=== PATIENT | female | born 1990 | race Caucasian/White ===

== ENCOUNTER 2016-10-04 00:50 | Emergency (ER) | payer OTHER ==
[~2016-10-04] VITALS: Wt 63.0 kg
[2016-10-04] MEDS ORDERED: SOD CHLORIDE 0.9% 1,000 ML IV ONE (02:30)
--- NOTE | 2016-10-04 03:23 | ERD ---
ER Documentation Chief Complaint Date/Time DATE: 10/04/16 TIME: 03:18 Chief Complaint COUGH AND SOB X 1 DAY HPI This is a 26-year-old female presenting to the emergency department for cough and shortness of breath 1 day. Patient states she was at work earlier today when suddenly she felt weak, dizzy, fatigued, shortness of breath and chest pressure. Patient states she is lifting heavy boxes at work and is unsure if this is the cause of symptoms. No syncopal episodes. Patient now denies any chest pressure or chest pain. No difficulty breathing. Patient continues to be dizzy and short of breath. Last menstrual period 09/22/2016. ROS All systems reviewed and are negative except as per history of present illness. Allergies Allergies: Coded Allergies: No Known Allergy (Unverified , 10/04/16) PMhx/Soc Medical and Surgical Hx: pt denies Medical Hx, pt denies Surgical Hx Hx Alcohol Use: No Hx Substance Use: No Hx Tobacco Use: No Smoking Status: Never smoker Physical Exam Vitals Vital Signs Date Time Temp Pulse Resp B/P Pulse Ox O2 Delivery O2 Flow Rate FiO2 10/04/16 02:43 Nasal Cannula 2 10/04/16 00:57 99.0 86 20 114/56 100 Physical Exam Const: Alert, [id number] Head: Atraumatic Eyes: Normal Conjunctiva ENT: Normal External Ears, Nose and Mouth. Neck: Full range of motion..~ No meningismus. Resp: Clear to auscultation bilaterally. No wheezing, rhonchi or crackles. Cardio: Regular rate and rhythm, no murmurs Abd: Soft, non tender, non distended. Normal bowel sounds Skin: No petechiae or rashes Back: No midline or flank tenderness Ext: No cyanosis, or edema Neur: Awake and alert Psych: Normal Mood and Affect Result Diagram: 10/04/16 0239 10/04/16 0239 Results 24 hrs Laboratory Tests Test 10/04/16 02:39 Anion Gap 16 Basophils # 0.110^3/ul Basophils % 0.6% Blood Urea Nitrogen 10mg/dl Calcium Level 9.5mg/dl Carbon Dioxide Level 25mmol/L Chloride Level 105mmol/L Creatinine 0.57mg/dl Eosinophils # 0.110^3/ul Eosinophils % 0.7% Glucose Level 86mg/dl Hematocrit 38.5% Hemoglobin 13.0g/dl Lymphocytes # 3.310^3/ul Lymphocytes % 34.8% Mean Corpuscular Hemoglobin 29.3pg Mean Corpuscular Hemoglobin Concent 33.7g/dl Mean Corpuscular Volume 86.9fl Mean Platelet Volume 8.8fl Monocytes # 0.710^3/ul Monocytes % 7.5% Neutrophils # 5.310^3/ul Neutrophils % 56.4% Nucleated Red Blood Cells # 0.010^3/ul Nucleated Red Blood Cells % 0.0/100WBC Platelet Count 59948^3/UL Potassium Level 3.5mmol/L Red Blood Count 4.4410^6/ul Red Cell Distribution Width 13.3% Sodium Level 142mmol/L Troponin I < 0.012ng/ml White Blood Count 9.410^3/ul Current Medications Medications (Trade) Dose Ordered Sig/Vale Route PRN Reason Start Time Stop Time Status Last Admin Dose Admin Sodium Chloride (NS) 1,000 ml @ 1,000 mls/hr Q1H ONCE IV 10/04/16 02:30 10/04/16 03:29 DC 10/04/16 02:47 Procedures/MDM ED COURSE: The patient was stable throughout ED course. I kept the patient and/or family informed of laboratory and diagnostic imaging results throughout the ED course. IV access obtained and IV fluid bolus of normal saline given Laboratory CBC no significant infection or anemia BMP no significant electrolyte imbalance Troponin <0.012 Urine positive Imaging Chest x-ray Patient: REBA BRAN : 1990 Age: 26 Sex: F MR #: [id number] [facility] #: [id number] DOS: 10/04/16 0223 Ordering MD: BANG ARTEAGA NP Location: [facility] Room/Bed: PROCEDURE: XR Chest. CLINICAL INDICATION: Shortness of breath. TECHNIQUE: Single frontal chest x-ray. COMPARISON: None. FINDINGS: The cardiomediastinal silhouette is unremarkable. The lungs are clear. No focal infiltrate is seen. There is no pleural effusion. There is no pneumothorax. The osseous structures are unremarkable. IMPRESSION: 1. No active disease. EKG: As interpreted by Dr. Javier Rate/Rhythm: Normal sinus rhythm with heart rate 71 bpm QRS, ST, T-waves: No changes consistent w/ acute ischemia Impression: No evidence of ischemia or arrhythmia MDM: 26-year-old female presents emergency department for weakness, dizziness, shortness breath, chest pressure and fatigue starting today. Chest pressure resolved prior to ED visit however patient continues to be short of breath, weak , dizzy and fatigued. Chest xray reviewed by radiologst is no active disease. EKG shows normal sinus rhythm with HR [address] Javier. Labs are unremarkable. Urine test is positive. Patient remains comfortable. Vital signs remained stable. Patient notified of news that she is and patient was unaware. Low suspicion for ACS, acute SC, pneumothorax, pulmonary embolism or CVA. Patient's diagnoses are dizziness and . Patient is appropriate for outpatient management and instructed to follow up with PCP and [facility] in the next 2-3 days for reassessment. Return to ED for any new or worsening symptoms. Patient verbalizes understanding. All questions answered at discharge. Departure Diagnosis: Primary Impression: Dizziness Additional Impression: Weeks of gestation: unspecified Qualified Code: Z33.1 - , unspecified gestational age Condition: Stable BANG ARTEAGA NP Oct 04, 2016 03:23
--- NOTE | 2016-10-04 03:28 | RADRPT ---
PROCEDURE: XR Chest. CLINICAL INDICATION: Shortness of breath. TECHNIQUE: Single frontal chest x-ray. COMPARISON: None. FINDINGS: The cardiomediastinal silhouette is unremarkable. The lungs are clear. No focal infiltrate is seen. There is no pleural effusion. There is no pneumothorax. The osseous structures are unremarkable. IMPRESSION: 1. No active disease. RPTAT: HMVK .Candido Aguirre MD, MD Date Time Electronically viewed and signed by .Candido Aguirre MD, on 10/04/2016 03:28 .K/
[2016-10-04 03:34] LABS: BASOPHIL # 0.1 10^3/ul (0.0-0.1); BASOPHILS % 0.6 % (0.0-2.0); EOSINOPHILS # 0.1 10^3/ul (0.0-0.5); EOSINOPHILS % 0.7 % (0.0-7.0); HEMATOCRIT 38.5 % (37.0-47.0); LYMPHOCYTES # 3.3 10^3/ul (0.8-2.9); LYMPHOCYTES % 34.8 % (15.0-51.0); MEAN CORPUSCULAR HEMOGLOBIN 29.3 pg (29.0-33.0); MEAN CORPUSCULAR HGB CONC 33.7 g/dl (32.0-37.0); MEAN CORPUSCULAR VOLUME 86.9 fl (82.0-101.0); MEAN PLATELET VOLUME 8.8 fl (7.4-10.4); MONOCYTE # 0.7 10^3/ul (0.3-0.9); MONOCYTES % 7.5 % (0.0-11.0); NEUTROPHIL # 5.3 10^3/ul (1.6-7.5); NEUTROPHILS % 56.4 % (39.0-77.0); PLATELET COUNT 302 10^3/UL (140-440); RED BLOOD COUNT 4.44 10^6/ul (4.20-5.40); RED CELL DISTRIBUTION WIDTH 13.3 % (11.5-14.5); UNCORRECTED WBC 9.4 10^3/ul (4.8-10.8); WHITE BLOOD COUNT 9.4 10^3/ul (4.8-10.8)
[2016-10-04 03:39] LABS: CONDITION 1
[2016-10-04 03:50] LABS: CHLORIDE 105 mmol/L (97-110)
[2016-10-04 03:51] LABS: POTASSIUM 3.5 mmol/L (3.5-5.1); SODIUM 142 mmol/L (135-144)
[2016-10-04 03:53] LABS: CREATININE 0.57 mg/dl (0.44-1.00)
[2016-10-04 03:54] LABS: ANION GAP 16 (8-16); BLOOD UREA NITROGEN 10 mg/dl (7-20); CALCIUM 9.5 mg/dl (8.4-10.2); CARBON DIOXIDE 25 mmol/L (21-31); GLUCOSE 86 mg/dl (70-220)
[2016-10-04 04:43] LABS: TROPONIN-I < 0.012 ng/ml (0.00-0.12)
== END 2016-10-04 05:45 | disposition home or self-care (01) ==
LOC: FTE 00:50
DX: R42 Dizziness and giddiness (principal); Z33.1 Pregnant state, incidental
CPT/HCPCS: 71010; 80048; 84484; 85025; 93005; J7030; 36415